=== PATIENT | male | born 1990 | race Caucasian/White ===

== ENCOUNTER 2022-01-31 09:04 | Emergency (ER) | payer OTHER ==
[2022-01-31 09:55] LABS: HEMOGLOBIN 16.9 gm/dl (14.0-17.5); RED BLOOD COUNT 5.38 M/UL (4.20-5.50); WHITE BLOOD COUNT 6.3 K/UL (4.5-11.0)
[2022-01-31 11:00] LABS: BUN/CREATININE RATIO 10 (0-10)
[2022-01-31] MEDS ORDERED: PROTONIX40 MG PO (15:16)
== END 2022-01-31 15:41 | disposition home or self-care (01) ==
LOC: ER1 09:04
PROVIDERS: Physician Assistant
DX: R07.2 Precordial pain (principal); Z88.6 Allergy status to analgesic agent
CPT/HCPCS: 71045; 80053; 82550; 82553; 83690; 84484; 85025; 93005; 99285